=== PATIENT | male | born 1980 | race Caucasian/White ===

== ENCOUNTER 2025-01-18 13:48 | Emergency (ER) | payer BC, OTHER ==
[2025-01-18 15:43] LABS: Absolute Basophils 0.1 K/uL (0-0.5); Absolute Eosinophils 0.8 K/uL (0-0.5); Absolute Lymphocytes (CBC) 2.3 K/uL (0.7-4.9); Absolute Monocytes 0.5 K/uL (0.1-1.3); Absolute Neutrophil 3.3 K/uL (1.8-8.0); Basophils % 1.5 % (0-1.3); Eosinophils % 11.7 % (0-4.4); Hematocrit 46.2 % (39.6-49.0); Hemoglobin 16.2 g/dL (13.6-17.9); Lymphocytes % 32.8 % (15.3-44.8); MCH 29.7 pg (27.0-35.0); MCHC 35.1 g/dL (32.0-36.0); MCV 84.5 fL (80-100); MPV 9.3 fL (7.6-11.3); Monocytes % 7.1 % (3.3-12.3); Neutrophils % 46.9 % (41.7-73.7); Nucleated Red Blood Cells % 0.1 % (0-0); Platelets 218 thou/uL (152-406); RBC Red Blood Cell Count 5.47 M/uL (4.33-5.43)
[2025-01-18 16:04] LABS: Anion Gap 7.7 mEq/L (5.0-15.0); BUN Blood Urea Nitrogen 19 mg/dL (7-18); Bicarbonate 27 mEq/L (21-32); Glomerular Filtration Rate 91 ml/min (=/>90); Glucose Level 102 mg/dL (74-106); Potassium 3.7 mEq/L (3.5-5.1); Sodium Level 138 mEq/L (136-145)
[2025-01-18 16:09] LABS: Troponin High Sensitivity < 3.0 pg/mL (<58.9)
--- NOTE | 2025-01-18 16:12 | RAD REPORT ---
EXAMINATION: ONE VIEW CHEST XR CLINICAL INDICATION: Male, 44 years old.,CHEST PAIN TECHNIQUE: Frontal chest projection is submitted. Examination is limited by patient positioning and t echnique. COMPARISON: No prior exam. FINDINGS: The lungs are well inflated and clear. No pneumothorax or sizable effusion. The heart is normal in s ize. Mediastinal contours are unremarkable. IMPRESSION: No acute intrathoracic abnormalities.
--- NOTE | 2025-01-18 16:16 | EDPHYS ---
Physician Documentation [facility] Name: Keaton Moy Age: 44 yrs Sex: Male : 1980 Arrival Date: 01/18/2025 Time: 13:48 Bed 6 Private MD: ED Physician Xuan Castaneda HPI: 01/18 14:20 This 44 yrs old Male presents to ER via Ambulatory with complaints of Chest gb1 discomfort. 14:20 44-year-old female with intermittent chest discomfort, he has a history of ulcerative gb1 colitis. He states pain has been intermittent at rest or with activity. He has never seen a program coordinator for residence life he does not smoke or drink. He denies any shortness of breath or fever or cough.. Historical: - Allergies: 14:16 No Known Allergies; jl7 - Home Meds: 14:16 None [Active]; jl7 - PMHx: 14:16 ulcerative colitis; jl7 - PSHx: 14:16 None; jl7 - Immunization history:: Adult Immunizations unknown. - Infectious Disease History:: Denies. - Social history:: Smoking status: Patient denies any tobacco usage or history of. Exam: 14:20 Constitutional: This is a well developed, well nourished patient who is awake, alert, gb1 and in no acute distress. Head/Face: Normocephalic, atraumatic. Eyes: Pupils equal round and reactive to light, extra-ocular motions intact. Lids and lashes normal. Conjunctiva and sclera are non-icteric and not injected. Cornea within normal limits. Periorbital areas with no swelling, redness, or edema. ENT: Nares patent. No nasal discharge, no septal abnormalities noted. Tympanic membranes are normal and external auditory canals are clear. Oropharynx with no redness, swelling, or masses, exudates, or evidence of obstruction, uvula midline. Mucous membranes moist. Neck: Trachea midline, no thyromegaly or masses palpated, and no cervical lymphadenopathy. Supple, full range of motion without nuchal rigidity, or vertebral point tenderness. No Meningismus. Chest/axilla: Normal chest wall appearance and motion. Nontender with no deformity. No lesions are appreciated. Cardiovascular: Regular rate and rhythm with a normal S1 and S2. No gallops, murmurs, or rubs. Normal PMI, no JVD. No pulse deficits. Respiratory: Lungs have equal breath sounds bilaterally, clear to auscultation and percussion. No rales, rhonchi or wheezes noted. No increased work of breathing, no retractions or nasal flaring. Abdomen/GI: Soft, non-tender, with normal bowel sounds. No distension or tympany. No guarding or rebound. No evidence of tenderness throughout. Back: No spinal tenderness. No costovertebral tenderness. Full range of motion. Skin: Warm, dry with normal turgor. Normal color with no rashes, no lesions, and no evidence of cellulitis. MS/ Extremity: Pulses equal, no cyanosis. Neurovascular intact. Full, normal range of motion. Neuro: Awake and alert, GCS 15, oriented to person, place, time, and situation. Cranial nerves II-XII grossly intact. Motor strength 5/5 in all extremities. Sensory grossly intact. Cerebellar exam normal. Normal gait. Vital Signs: 14:13 BP 132 / 86; Pulse 81; Resp 15; Temp 97; Pulse Ox 100% ; Weight 89.81 kg; Height 5 ft. jl7 6 in. ; Pain 1/10; 15:00 BP 115 / 87; Pulse 76; Resp 16; Pulse Ox 99% on R/A; db 16:30 BP 119 / 77; Pulse 70; Resp 16; Pulse Ox 97% on R/A; db 14:13 Body Mass Index 31.96 (89.81 kg, 167.64 cm) jl7 14:13 Pain Scale: Adult jl7 MDM: 14:07 Medical Screening Exam initiated gb1 14:20 ED course: EKG shows normal sinus rhythm at 78 bpm normal intervals and axis he has gb1 some flat T waves in leads I and aVL as well as anteriorly in leads the 1 through V6.. 16:16 Data reviewed: lab test result(s), cardiac enzymes, troponin i, CBC, electrolytes, gb1 sodium, potassium, chloride, serum bicarbonate, BUN, creatinine, serum glucose, EKG, radiologic studies, plain films. 16:16 ED course: Mr. Moy is a 44-year-old male here with chest pain that does not gb1 appear to be any anginal complaint. His troponin is negative he has had pain for more than 2 weeks intermittently. He does not have any risk factors for coronary artery disease. His EKG is normal sinus rhythm at a rate of 78 bpm he does have some flat T waves anteriorly but no other reciprocal changes. I recommend outpatient evaluation by cardiology for a stress test. Patient's chest x-ray does not show any pneumonia and at this time I doubt PE I will discharge him home with explicit return precautions which is compliant to prior discharge home today.. 01/18 14:10 Order name: Basic Metabolic Panel; Complete Time: 16:13 gb01/18 14:10 Order name: CBC with Diff; Complete Time: 16: gb01/18 14:10 Order name: D-Dimer; Complete Time: 16:17 gb01/18 14:10 Order name: Troponin HS; Complete Time: 16: gb01/18 14:10 Order name: XRAY Chest (1 view); Complete Time: 16: gb01/18 14:10 Order name: EKG; Complete Time: 14:11 gb01/18 14:10 Order name: Cardiac monitoring; Complete Time: 14:19 gb01/18 14:10 Order name: EKG - Nurse/Tech; Complete Time: 14:19 gb01/18 14:10 Order name: IV Saline Lock; Complete Time: 16: gb01/18 14:10 Order name: Labs collected and sent; Complete Time: 16: gb01/18 14:10 Order name: O2 Per Protocol; Complete Time: 14:19 gb01/18 14:10 Order name: O2 Sat Monitoring; Complete Time: 14:19 gb Administered Medications: No medications were administered Disposition Summary: 01/18/25 16:15 Discharge Ordered Notes: Location: Home gb1 Problem: new gb1 Symptoms: have improved gb1 Condition: Stable gb1 Diagnosis - Chest pain, unspecified gb1 Followup: gb1 - With: Trent Dominguez MD - When: 2 - 3 days - Reason: Further diagnostic work-up Discharge Instructions: - Discharge Summary Sheet gb1 - Nonspecific Chest Pain, Adult, [id number] gb1 Forms: - Medication Reconciliation Form gb1 - Antibiotic Education gb1 - Prescription Opioid Use gb1 - Patient Portal Instructions gb1 - Leadership Thank You Letter gb1 Signatures: Dispatcher [employer] Emeka Gu RN RN jl7 Leonel, Xuan, MD MD gb1
--- NOTE | 2025-01-18 16:16 | ER ---
Nurse's Notes [facility] Name: Keaton Moy Age: 44 yrs Sex: Male : 1980 Arrival Date: 01/18/2025 Time: 13:48 Bed 6 Private MD: Diagnosis: Chest pain, unspecified Presentation: 01/18 14:13 Chief complaint: Patient states: Left sided CP x 1 week, 2/10 at worst, sent by PCP. jl Coronavirus screen: At this time, the client does not indicate any symptoms associated with coronavirus-19. Ebola Screen: No symptoms or risks identified at this time. Initial Sepsis Screen: Does the patient meet any 2 criteria? No. Patient's initial sepsis screen is negative. Does the patient have a suspected source of infection? No. Patient's initial sepsis screen is negative. Risk Assessment: Do you want to hurt yourself or someone else? Patient reports no desire to harm self or others. Onset of symptoms was January 11, 2025. 14:13 Method Of Arrival: Ambulatory [facility] 14:13 Acuity: EZEQUIEL 2 jl7 Triage Assessment: 14:16 General: Appears in no apparent distress. uncomfortable, Behavior is calm, cooperative, jl7 appropriate for age. Pain: Complains of pain in left breast Pain currently is 1 out of 10 on a pain scale. Historical: - Allergies: 14:16 No Known Allergies; jl7 - Home Meds: 14:16 None [Active]; jl7 - PMHx: 14:16 ulcerative colitis; jl7 - PSHx: 14:16 None; jl7 - Immunization history:: Adult Immunizations unknown. - Infectious Disease History:: Denies. - Social history:: Smoking status: Patient denies any tobacco usage or history of. Screenin:36 [facility] ED Fall Risk Assessment (Adult) History of falling in the last 3 months, db including since admission No falls in past 3 months (0 pts) Confusion or Disorientation No (0 pts) Intoxicated or Sedated No (0 pts) Impaired Gait No (0 pts) Mobility Assist Device Used No (0 pt) Altered Elimination No (0 pt) Score/Fall Risk Level 0 - 2 = Low Risk Oriented to surroundings, Maintained a safe environment. Abuse screen: Denies threats or abuse. Denies injuries from another. Abuse screen: Denies threats or abuse. Nutritional screening: No deficits noted. Tuberculosis screening: No symptoms or risk factors identified. Assessment: 15:15 Reassessment: Patient appears in no apparent distress at this time. Patient and/or db family updated on plan of care and expected duration. Pain level reassessed. Patient is alert, oriented x 3, equal unlabored respirations, skin warm/dry/pink. General: Appears in no apparent distress. comfortable, Behavior is calm, cooperative. Pain: Complains of pain in chest and left breast. Neuro: Level of Consciousness is awake, alert, obeys commands, Oriented to person, place, time, situation. Respiratory: Airway is patent Respiratory effort is even, unlabored, Respiratory pattern is regular, symmetrical. 16:36 Reassessment: Patient appears in no apparent distress at this time. Patient and/or db family updated on plan of care and expected duration. Pain level reassessed. Patient is alert, oriented x 3, equal unlabored respirations, skin warm/dry/pink. Patient states feeling better. Patient states symptoms have improved. Vital Signs: 14:13 BP 132 / 86; Pulse 81; Resp 15; Temp 97; Pulse Ox 100% ; Weight 89.81 kg; Height 5 ft. jl7 6 in. ; Pain 1/10; 15:00 BP 115 / 87; Pulse 76; Resp 16; Pulse Ox 99% on R/A; db 16:30 BP 119 / 77; Pulse 70; Resp 16; Pulse Ox 97% on R/A; db 14:13 Body Mass Index 31.96 (89.81 kg, 167.64 cm) jl7 14:13 Pain Scale: Adult jl7 ED Course: 13:50 Patient arrived in ED. mr 13:50 Xuan Castaneda MD is Attending Physician. gb1 14:16 Triage completed. jl7 14:16 Arm band placed on right wrist. jl7 14:19 EKG done, by ED staff, reviewed by Xuan Castaneda MD. jl7 14:56 XRAY Chest (1 view) In Process Unspecified. EDMS 15:20 Initial lab(s) drawn, by md, sent to lab. Inserted saline lock: 20 gauge in right db antecubital area, using aseptic technique. Blood collected. Flushed with 10 mL NS. 16:15 Trent Dominguez MD is Referral Physician. gb1 16:31 Anya Lechuga, RN is Primary Nurse. db 16:36 Patient has correct armband on for positive identification. Bed in low position. Call db light in reach. Side rails up X 1. Client placed on continuous cardiac and pulse oximetry monitoring. NIBP monitoring applied. patient monitor on. Pulse ox on. NIBP on. Warm blanket given. Pillow given. 16:36 Provided Education on: DISCHARGE AND FOLLOWUP. db 16:36 No provider procedures requiring assistance completed. IV discontinued, intact, db bleeding controlled, No redness/swelling at site. Administered Medications: No medications were administered Medication: 16:36 VIS not applicable for this client. db Outcome: 16:15 Discharge ordered by . gb1 16:36 Discharged to home ambulatory, with family, db 16:36 Condition: stable 16:36 Discharge instructions given to patient, family, Instructed on discharge instructions, follow up and referral plans. 16:37 Patient left the ED. db Signatures: Dispatcher [employer] EDNY Wilda Mix, Reg Reg mr Emeka Branham RN RN jl7 Anya Lechuga, RN RN Xuan Hathaway MD MD gb1
[2025-01-18 17:00] VITALS: TEMP 97
[2025-01-18 17:02] VITALS: BP 119/77; O2SAT 97
--- NOTE | 2025-01-19 11:48 | EKG ---
Test Date: 2025-01-18 Test Time: 14:04:22 Engraver Copperplate: HASMUKH MEASUREMENT RESULTS: Intervals: Rate: 78 MT: 144 QRSD: 96 QT: 396 QTc: 451 [place]: P: 60 MT: 144 QRS: -10 T: 18 INTERPRETIVE STATEMENTS: Normal sinus rhythm Normal ECG No previous ECG available for comparison Electronically Signed On 01-19-25 11:48:19 CDT by Karl Carroll
== END 2025-01-18 16:37 | disposition home or self-care (01) ==
LOC: ER 13:48
DX: R07.89 Other chest pain (principal)
CPT/HCPCS: 36415; 71045; 80048; 84484; 85025; 85379; 93005